=== PATIENT | female | born 1980 | race African-American/Black ===

== ENCOUNTER 2016-11-17 15:48 | Emergency (ER) | payer SELFPAY ==
[~2016-11-17] VITALS: Ht 154.9 cm; Wt 83.9 kg
[~2016-11-17 15:48] MED LIST: DOXYCYCLINE MO100 MG ORAL; IBUPROFEN600 MG ORAL; NORCO 5-325 TA1 EACH ORAL; PROAIR HFA8.5 GM INH
[2016-11-17] MEDS ORDERED: NKM (16:27)
[2016-11-17 16:29] VITALS: BP 90/54
[2016-11-17] MEDS ORDERED: Metoclopramide 10mg/2ml Inj IM ONE (16:30)
[2016-11-17] MEDS ORDERED: Ketorolac 30mg Inj IM ONE (16:30)
[2016-11-17] MEDS ORDERED: DiphenhydrAMINE 50mg/ml Inj IM ONE (16:30)
[2016-11-17 17:45] LABS: APPEARANCE,URINE CLEAR; KETONES,URINE NEGATIVE (NEGATIVE); LEUKOCYTE ESTERASE ,URINE 2+ (NEGATIVE); NITRITE,URINE NEGATIVE (NEGATIVE); PH,URINE 7 (4.5-8.0); PROTEIN,URINE NEGATIVE (NEGATIVE); UROBILINOGEN,URINE 1 MG/DL (0.0-1.0)
[2016-11-17 18:08] LABS: BACTERIA,URINE FEW /HPF; SQUAMOUS EPITHELIAL CELL,UR FEW /LPF (NONE/OCC)
[2016-11-17] MEDS ORDERED: NITROFURANTOIN100 M2 ORAL (18:08)
[2016-11-17] MEDS ORDERED: IBUPROFEN600 MG ORAL (18:08)
[2016-11-17 18:15] VITALS: BP 103/51
--- NOTE | 2016-11-17 21:55 | Emergency Room Report ---
History of Present Illness General Chief Complaint: Headache Source: Patient Present Illness HPI The patient is a 36-year-old female presenting for possible migraine. The patient states that she has had a left-sided headache on and off for the past 2 months. Pain is described as a 10 out of 10 sharp sensation and does not radiate. Pain is worse with loud noises and lights. The patient admits to photophobia. The patient states that she has been under increased stress over the past 2 months and thinks this may be a factor for the headaches. The patient also admits to dysuria and increased urinary frequency over the past week. Patient denies flank pain or vaginal discharge. The patient denies other symptoms including nausea, vomiting, fever, chills, neck pain or stiffness Allergies: Coded Allergies: No Known Allergies (Unverified , 04/12/16) Patient History Past Medical History: see triage record Pertinent Family History: none Last Menstrual Period: 11/17/2016 : 0 Para: 0 Reviewed Nursing Documentation: PMH: Agreed, PSxH: Agreed Nursing Documentation-PMH Hx Asthma: Yes Review of Systems All Other Systems: negative except mentioned in HPI Physical Exam Vital Signs Date Time Temp Pulse Resp B/P Pulse Ox O2 Delivery O2 Flow Rate FiO2 11/17/16 16:21 98.2 83 16 90/54 99 Room Air Sp02 EP Interpretation: reviewed, normal General Appearance: no apparent distress, alert, GCS 15, non-toxic Head: normocephalic, atraumatic Eyes: bilateral eye PERRL, bilateral eye normal inspection ENT: hearing grossly normal, normal pharynx, no angioedema, normal voice Neck: full range of motion, supple/symm/no masses Respiratory: chest non-tender, lungs clear, normal breath sounds, speaking full sentences Musculoskeletal: back normal, gait/station normal, normal range of motion, non- tender Neurologic: alert, oriented x3, responsive, motor strength/tone normal, sensory intact, speech normal Psychiatric: judgement/insight normal, memory normal, mood/affect normal, no suicidal/homicidal ideation Skin: normal color, no rash, warm/dry, well hydrated Lymphatic: no adenopathy Medical Decision Making PA Attestation Dr. Tavera is my supervising physician. Patient management was discussed with my supervising physician Diagnostic Impression: Primary Impression: Urinary tract infection Additional Impression: Migraine ER Course The patient is a 36-year-old female presenting for possible migraine and UTI Differential diagnoses include but not limited to Migraine, tension headache, cluster LEAL, anxiety Differential diagnosis considered but not limited to: UTI, vaginitis, pyelonephritis, PID, Physical exam: Vitals are within normal limits. No apparent distress HEENT exam is unremarkable. Nontender. PERRL Neck is soft and supple. Nontender Abdomen is soft and nontender. Normal bowel sounds. Nondistended. No guarding No CVA tenderness The patient is given Toradol and Reglan and states pain has ceased. Patient is feeling much better. Urinalysis is not consistent with urinary tract infection but the patient will be treated with Macrobid due to symptoms. Patient is given a prescription for Motrin for headache if it returns. The patient needs to follow up with PMD ER precautions are given Laboratory Tests Test 11/17/16 17:14 Urine Color Pale yellow Urine Appearance Clear Urine pH 7 (4.5-8.0) Urine Specific Blairs 1.015 (1.005-1.035) Urine Protein Negative (NEGATIVE) Urine Glucose (UA) Negative (NEGATIVE) Urine Ketones Negative (NEGATIVE) Urine Occult Blood 4+ (NEGATIVE) H Urine Nitrite Negative (NEGATIVE) Urine Bilirubin Negative (NEGATIVE) Urine Urobilinogen 1 MG/DL (0.0-1.0) H Urine Leukocyte Esterase 2+ (NEGATIVE) H Urine RBC 5-10 /HPF (0 - 2) H Urine WBC 2-4 /HPF (0 - 2) Urine Squamous Epithelial Cells Few /LPF (NONE/OCC) Urine Bacteria Few /HPF (NONE) Urine HCG, Qualitative Negative Lab Results Impression UA: few bacteria with 2-4 WBC Neg preg Last Vital Signs Date Time Temp Pulse Resp B/P Pulse Ox O2 Delivery O2 Flow Rate FiO2 11/17/16 18:15 98.3 66 16 103/51 99 Room Air Status: improved Disposition: HOME, SELF-CARE Condition: Improved Scripts Ibuprofen* (MOTRIN*) 600 Mg Tablet 600 MG ORAL Q8H Y for For Pain, #30 TAB 0 Refills Prov: TERZIAN,SONIA P.A. 11/17/16 Nitrofurantoin Monohyd/M-Cryst* (MACROBID 100 MG*) 100 Mg Capsule 100 MG ORAL EVERY 12 HOURS, #14 CAP Prov: TERZIAN,SONIA P.A. 11/17/16 Patient Instructions: Urinary Tract Infection, Migraine Headache, [id number] Additional Instructions: I discussed my findings with the patient. All questions and concerns have been answered. Treatment and medication compliance have been addressed. I advised the patient that they need to follow up with PMD in 3-5 days. Return to ED if symptoms worsen, new symptoms arise, or if needed for any reason. Patient verbalized understanding of discharge instructions. SONIA PUENTES Nov 17, 2016 21:55
== END 2016-11-17 18:16 | disposition home or self-care (01) ==
LOC: EMR 16:32
DX: G43.909 Migraine, unspecified, not intractable, without status migrainosus (principal); N39.0 Urinary tract infection, site not specified; J45.909 Unspecified asthma, uncomplicated
CPT/HCPCS: 81003; 81025; 96372; 99284; J1200; J1885; J2765

== ENCOUNTER 2018-04-23 01:45 | Emergency (ER) | payer OTHER ==
[~2018-04-23] VITALS: Ht 154.9 cm; Wt 85.7 kg
[~2018-04-23 01:45] MED LIST changes: +NITROFURANTOIN100 M2 ORAL; +NKM
[2018-04-23 02:12] VITALS: BP 118/83
[2018-04-23] MEDS ORDERED: IBUPROFEN600 MG ORAL (02:23)
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
[2018-04-23 02:39] VITALS: BP 118/83
--- NOTE | 2018-04-23 09:41 | Diagnostic Imaging Report ---
Indication: Leg pain and trauma/injury Comparison: None Findings: Two views of the right tibia and fibula were obtained. No acute fracture, malalignment, or periosteal reaction are identified. Soft tissues are unremarkable. Impression: Negative examination of the tibia and fibula
== END 2018-04-23 02:40 | disposition home or self-care (01) ==
LOC: EMR 02:04
DX: S16.1XXA Strain of muscle, fascia and tendon at neck level, initial encounter (principal); S80.11XA Contusion of right lower leg, initial encounter; M54.2 Cervicalgia; M79.661 Pain in right lower leg; Y04.2XXA Assault by strike against or bumped into by another person, initial encounter; Y92.89 Other specified places as the place of occurrence of the external cause; Y99.0 Civilian activity done for income or pay; Y93.9 Activity, unspecified
CPT/HCPCS: 99283